=== PATIENT | male | born 1990 | race African-American/Black ===

== ENCOUNTER 2022-05-06 06:27 | Emergency (ER) | payer MEDICAID ==
[~2022-05-06] VITALS: Ht 177.8 cm; Wt 82.0 kg
[2022-05-06] MEDS ORDERED: HALOPERIDOL LACTATE 5MG/ML VIAL IM STA (06:44)
[2022-05-06] MEDS ORDERED: LORAZEPAM 2MG/ML CPJ IV ONE (08:15)
[2022-05-06 09:01] LABS: BASOPHILS % 0.4 % (0.0-2.0); CHLORIDE 106 mEq/L (98-107); EOSINOPHILS % 0.2 % (0.0-5.0); HEMATOCRIT. 51.6 % (42.0-52.0); HEMOGLOBIN. 17.8 g/dL (14.0-18.0); LYMPHOCYTES % 13.2 % (20.0-50.0); MEAN CORPUSCULAR HEMOGLOBIN 30.8 pg (28.0-32.0); MEAN CORPUSCULAR VOLUME 89.3 fL (80.0-94.0); MEAN PLATELET VOLUME 10.1 fl (7.4-10.4); MONOCYTES % 6.5 % (2.0-8.0); NEUTROPHILS % 79.7 % (40.0-76.0); PLATELET 155 x1000/uL (130-400); RED BLOOD CELL COUNT 5.78 mill/uL (4.7-6.1); RED CELL DISTRIBUTION WIDTH 15.5 % (11.6-14.6)
[2022-05-06 09:19] LABS: ETHANOL BLOOD < 10 mg/dL
[2022-05-06 12:30] VITALS: BP 129/78
== END 2022-05-06 14:27 | disposition home or self-care (01) ==
LOC: ER 06:27
DX: F15.10 Other stimulant abuse, uncomplicated (principal); Z86.59 Personal history of other mental and behavioral disorders
CPT/HCPCS: 36415; 80053; 80307; 80320; 80329; 84443; 85025; 96372; 96374; 99283; J1630; J2060; G0480